=== PATIENT | male | born 1965 | race Caucasian/White ===

== ENCOUNTER 2022-06-24 18:49 | Inpatient (IN) ==
[2022-06-24] MEDS ORDERED: cefTRIAXone 1,000 MG in 0.9 % Sodium Chloride 10 ML IVP ONE (19:11)
[2022-06-24] MEDS ORDERED: *HR* FentaNYL (PF) 100 MCG/2 ML VIAL IVP ONE (19:14)
[2022-06-24] MEDS ORDERED: Naloxone 0.4 MG/ML INJ IVP PRN (20:02)
[2022-06-24] MEDS ORDERED: Acetaminophen 325 MG TABLET PO PRN (20:02)
[2022-06-24] MEDS ORDERED: Ondansetron 4 MG/2 ML VIAL IVP PRN (20:02)
[2022-06-25] MEDS ORDERED: Iopamidol - 370 500 ML MLS IVP ONE (08:18)
[2022-06-25 08:49] LABS: Basophils # 0.1 K/mcL (0.0-0.2); Basophils % 0.7 %; Eosinophils # 0.4 K/mcL (0.0-0.6); Eosinophils % 3.7 %; Hematocrit 50.4 % (37.5-50.1); Hemoglobin 16.4 g/dL (12.9-16.9); Immature Granulocytes % 0.4 % (0-4); Lymphocytes # 2.1 K/mcL (0.6-4.6); Lymphocytes % 18.4 %; Mean Corpuscular HGB Conc 32.5 g/dL (31.6-35.5); Mean Corpuscular Hemoglobin 29.4 pg (28.0-33.3); Mean Corpuscular Volume 90.3 fL (83.0-100.0); Monocytes # 0.9 K/mcL (0.0-1.3); Monocytes % 7.7 %; Neutrophils # 7.8 K/mcL (1.6-8.9); Platelet Count 280 K/mcL (140-400); Red Blood Count 5.58 M/mcL (4.19-5.50); Segmented Neutrophils % 69.1 %; White Blood Count 11.3 K/mcL (4.3-11.1)
[2022-06-25] MEDS ORDERED: cefTRIAXone 1,000 MG in 0.9 % Sodium Chloride 10 ML IVPB SCH (09:00)
[2022-06-25 09:01] LABS: INR 1.2; Prothrombin Time 13.6 Seconds (9.4-12.1)
[2022-06-25 09:12] LABS: BUN/Creatinine Ratio 16 (6-26); Blood Urea Nitrogen 15 mg/dL (6-20); Calcium 9.3 mg/dL (8.6-10.3); Carbon Dioxide 27 mEq/L (23-29); Chloride 104 mEq/L (98-107); Glucose 121 mg/dL (70-105); Magnesium 1.7 mg/dL (1.6-2.6); Osmolality,Calculated 288 (280-300); Phosphorous 3.7 mg/dL (2.7-4.5); Potassium 4.1 mEq/L (3.5-5.1); Sodium 138 mEq/L (136-145)
[2022-06-25 09:24] LABS: Thyroid Stimulating Hormone 2.454 mcIU/mL (0.340-5.600)
[2022-06-25] MEDS ORDERED: *HR* Propofol 200 MG/20 ML VIAL IVP ONE (15:05)
[2022-06-25] MEDS ORDERED: Lidocaine -MPF 2% 2 ML VIAL ONE (15:06)
[2022-06-25] MEDS ORDERED: *HR* Rocuronium Bromide 50 MG/5 ML VIAL ONE (15:06)
[2022-06-25] MEDS ORDERED: *HR* Succinylcholine 200 MG/10 ML VIAL IVP ONE (15:06)
[2022-06-25] MEDS ORDERED: Albuterol 2.5 MG/3 ML NEBULIZER IH PRN (15:10)
[2022-06-25] MEDS ORDERED: Ondansetron 4 MG/2 ML VIAL IVP PRN (15:10)
[2022-06-25] MEDS ORDERED: *HR* FentaNYL (PF) 100 MCG/2 ML VIAL IVP PRN (15:10)
[2022-06-25 17:08] VITALS: BP 115/76; PULSE 79; TEMP 97.4; O2SAT 96
== END 2022-06-25 18:45 | disposition home or self-care (01) | DRG 254 ==
LOC: EMEROOARM 18:49 → 3ANU 18:49 → SUATTDRO 20:02 → 3ANU 21:00
PROVIDERS: ADMIT Internal Medicine; ATTEND Family Medicine
PROC: ENDOEUS (2022-06-25 15:30)

== ENCOUNTER 2022-06-30 12:37 | Observation (INO) ==
[2022-06-30] MEDS ORDERED: Iopamidol - 370 500 ML MLS IVP ONE (13:47)
[2022-06-30] MEDS ORDERED: Morphine Sulfate 2 MG/ML SYRINGE IVP ONE (13:54)
[2022-06-30 14:40] LABS: Basophils # 0.1 K/mcL (0.0-0.2); Basophils % 0.9 %; Eosinophils # 0.4 K/mcL (0.0-0.6); Eosinophils % 2.9 %; Hematocrit 52.3 % (37.5-50.1); Hemoglobin 16.9 g/dL (12.9-16.9); Immature Granulocytes % 0.4 % (0-4); Lymphocytes # 1.7 K/mcL (0.6-4.6); Lymphocytes % 11.4 %; Mean Corpuscular HGB Conc 32.3 g/dL (31.6-35.5); Mean Corpuscular Hemoglobin 29.3 pg (28.0-33.3); Mean Corpuscular Volume 90.8 fL (83.0-100.0); Mean Platelet Volume 11.1 fL (9.4-12.4); Monocytes # 1.3 K/mcL (0.0-1.3); Monocytes % 8.7 %; Neutrophils # 11.2 K/mcL (1.6-8.9); Platelet Count 328 K/mcL (140-400); Red Blood Count 5.76 M/mcL (4.19-5.50); Red Cell Distribution Width 13.9 % (11.5-14.5); Segmented Neutrophils % 75.7 %; White Blood Count 14.8 K/mcL (4.3-11.1)
[2022-06-30 14:52] LABS: Alanine Aminotransferase 20 Units/L (7-52); Albumin 3.9 g/dL (3.5-5.7); Albumin/Globulin Ratio 1.3 (1.1-2.2); Alkaline Phosphatase 59 Units/L (34-104); Aspartate Amino Transferase 15 Units/L (13-39); BUN/Creatinine Ratio 13 (6-26); Bilirubin,Direct 0.1 mg/dL (0.0-0.2); Bilirubin,Indirect 0.3 mg/dL (0.0-1.0); Bilirubin,Total 0.4 mg/dL (0.3-1.0); Blood Urea Nitrogen 17 mg/dL (6-20); Calcium 9.4 mg/dL (8.6-10.3); Carbon Dioxide 29 mEq/L (23-29); Chloride 103 mEq/L (98-107); Globulin 3.1 g/dL (2.4-3.5); Glucose 101 mg/dL (70-105); Lipase 28 Units/L (11-82); Osmolality,Calculated 284 (280-300); Potassium 4.1 mEq/L (3.5-5.1); Sodium 136 mEq/L (136-145); Troponin I < 0.03 ng/mL (< 0.04)
[2022-06-30] MEDS ORDERED: 0.9 % Sodium Chloride 1,000 ML IVC ONE (16:31)
[2022-06-30] MEDS ORDERED: CefTRIAXone 1,000 MG VIAL IM ONE (16:32)
[2022-06-30] MEDS ORDERED: Ketorolac 30 MG/ML VIAL IVP ONE (16:33)
[2022-06-30] MEDS ORDERED: cefTRIAXone 1,000 MG in Water for inj. (sterile) 10 ML IVP ONE (16:36)
[2022-06-30 17:12] LABS: Bilirubin,Urine Negative (Negative); Blood,Urine Moderate (Negative); Budding Yeast,Urine Many per hpf (None Seen); Clarity,Urine Ex.Turbid (Clear); Color,Urine Yellow (Yellow); Glucose,Urine (UA) Normal (Normal); Ketones,Urine Negative (Negative); Leukocyte Esterase,Urine Moderate (Negative); Nitrite,Urine Negative (Negative); PH,Urine 7.5 pH Units (5.0-8.0); Protein,Urine Negative (Neg-Trace); RBC,Urine TNTC per hpf (0-3); Specific Gravity,Urine > 1.030 (1.010-1.025); Urobilinogen,Urine Normal (Normal); WBC,Urine 30-50 per hpf (0-3)
[2022-06-30] MEDS ORDERED: Naloxone 0.4 MG/ML INJ IVP PRN (19:25)
[2022-06-30] MEDS ORDERED: Ondansetron 4 MG/2 ML VIAL IVP PRN (19:25)
[2022-06-30] MEDS ORDERED: Ketorolac 30 MG/ML VIAL IVP PRN (19:25)
[2022-06-30] MEDS ORDERED: Acetaminophen 325 MG TABLET PO PRN (19:25)
[2022-06-30] MEDS ORDERED: 0.9 % Sodium Chloride 1,000 ML IVC SCH (19:30)
[2022-07-01 01:55] LABS: Hemoglobin 15.8 g/dL (12.9-16.9); Mean Corpuscular HGB Conc 32.9 g/dL (31.6-35.5); Mean Corpuscular Hemoglobin 29.2 pg (28.0-33.3); Mean Corpuscular Volume 88.6 fL (83.0-100.0); Mean Platelet Volume 10.9 fL (9.4-12.4); Platelet Count 298 K/mcL (140-400); Red Blood Count 5.42 M/mcL (4.19-5.50); White Blood Count 21.2 K/mcL (4.3-11.1)
[2022-07-01 02:14] LABS: Calcium 8.9 mg/dL (8.6-10.3); Potassium 4.1 mEq/L (3.5-5.1)
[2022-07-01] MEDS ORDERED: Ondansetron 4 MG/2 ML VIAL ONE (07:22)
[2022-07-01] MEDS ORDERED: *HR* Propofol 200 MG/20 ML VIAL IVP ONE (07:22)
[2022-07-01] MEDS ORDERED: Lidocaine -MPF 2% 2 ML VIAL ONE (07:22)
[2022-07-01] MEDS ORDERED: *HR* Succinylcholine 200 MG/10 ML VIAL IVP ONE (07:22)
[2022-07-01] MEDS ORDERED: *HR* FentaNYL (PF) 100 MCG/2 ML VIAL ONE (07:22)
[2022-07-01] MEDS ORDERED: Famotidine 20 MG/2 ML VIAL ONE (07:39)
[2022-07-01] MEDS ORDERED: Acetaminophen IV 1,000 MG/100 ML BAG IVPB ONE ×2 (07:39→07:40)
[2022-07-01] MEDS ORDERED: Famotidine 20 MG/2 ML VIAL IVP ONE (07:40)
[2022-07-01] MEDS ORDERED: Iopamidol - 300 50 ML VIAL ONE (08:01)
[2022-07-01] MEDS ORDERED: *HR* Rocuronium Bromide 50 MG/5 ML VIAL ONE (08:32)
[2022-07-01] MEDS ORDERED: Ringers Solution, Lactated 1,000 ML ONE (09:12)
[2022-07-01] MEDS ORDERED: Naloxone 0.4 MG/ML INJ IVP PRN (09:32)
[2022-07-01] MEDS ORDERED: Ondansetron 4 MG/2 ML VIAL IVP PRN (09:32)
[2022-07-01] MEDS ORDERED: Acetaminophen 325 MG TABLET PO PRN (09:32)
[2022-07-01] MEDS ORDERED: Ketorolac 30 MG/ML VIAL IVP PRN (09:32)
[2022-07-01] MEDS ORDERED: *HR* Belladonna Alkaloids/Opium 30 MG RECTAL SUPPOSITORY RC PRN (09:32)
[2022-07-01] MEDS: 0.9 % Sodium Chloride 1,000 ML IVC SCH (13:29)
[2022-07-01] MEDS ORDERED: cefTRIAXone 1,000 MG in 0.9 % Sodium Chloride 10 ML IVP SCH (17:00)
[2022-07-02] MEDS: 0.9 % Sodium Chloride 1,000 ML IVC SCH (05:42)
[2022-07-02 06:56] VITALS: BP 117/71; PULSE 71; TEMP 97.8; O2SAT 96
[2022-07-02 18:39] LABS: A.calcoaceticus-baumannii cplx Not Detected (Not Detect); Enterococcus faecalis by PCR Not Detected (Not Detect); Enterococcus faecium by PCR Not Detected (Not Detect); Staph epidermidis by PCR Not Detected (Not Detect); Staph lugdunensis by PCR Not Detected (Not Detect); Staphylococcus aureus by PCR Not Detected (Not Detect); Staphylococcus by PCR Not Detected (Not Detect); Streptococcus agalactiae(B)PCR Not Detected (Not Detect); Streptococcus by PCR Not Detected (Not Detect); Streptococcus pneumoniae PCR Not Detected (Not Detect); Streptococcus pyogenes (A) PCR Not Detected (Not Detect)
[2022-07-02 18:40] LABS: Bacteroides fragilis by PCR Not Detected (Not Detect); Candida albicans by PCR Not Detected (Not Detect); Candida auris by PCR Not Detected (Not Detect); Candida glabrata by PCR Not Detected (Not Detect); Candida krusei by PCR Not Detected (Not Detect); Candida parapsilosis by PCR Not Detected (Not Detect); Candida tropicalis by PCR Not Detected (Not Detect); Crypto. neoformans/gattii PCR Not Detected (Not Detect); Enterobacter cloacae Cmplx PCR Not Detected (Not Detect); Enterobacterales by PCR Not Detected (Not Detect); Escherichia coli by PCR Not Detected (Not Detect); Klebs. pneumoniae group by PCR Not Detected (Not Detect); Klebsiella aerogenes by PCR Not Detected (Not Detect); Klebsiella oxytoca by PCR Not Detected (Not Detect); Proteus by PCR Not Detected (Not Detect); Pseudomonas aeruginosa by PCR Not Detected (Not Detect); Salmonella species by PCR Not Detected (Not Detect); Serratia marcescens by PCR Not Detected (Not Detect); Stenotrophomonas maltophilia Not Detected (Not Detect)
== END 2022-07-02 08:15 | disposition left against medical advice (07) ==
LOC: 3ANU 12:37 → EMEROOARM 12:37 → SUATTDRO 18:39 → 3ANU 19:55
PROVIDERS: ADMIT Internal Medicine; ATTEND Family Medicine

== ENCOUNTER 2022-07-03 15:29 | Inpatient (IN) ==
[2022-07-03] MEDS ORDERED: cefTRIAXone 1,000 MG in 0.9 % Sodium Chloride 10 ML IVP ONE (18:26)
[2022-07-03 18:43] LABS: Basophils # 0.1 K/mcL (0.0-0.2); Basophils % 0.8 %; Eosinophils # 0.4 K/mcL (0.0-0.6); Eosinophils % 3.2 %; Hematocrit 48.7 % (37.5-50.1); Hemoglobin 15.8 g/dL (12.9-16.9); Immature Granulocytes % 0.3 % (0-4); Lymphocytes # 2.3 K/mcL (0.6-4.6); Lymphocytes % 19.7 %; Mean Corpuscular HGB Conc 32.4 g/dL (31.6-35.5); Mean Corpuscular Hemoglobin 29.4 pg (28.0-33.3); Mean Corpuscular Volume 90.5 fL (83.0-100.0); Monocytes # 1.1 K/mcL (0.0-1.3); Monocytes % 9.5 %; Neutrophils # 7.9 K/mcL (1.6-8.9); Platelet Count 323 K/mcL (140-400); Red Blood Count 5.38 M/mcL (4.19-5.50); Red Cell Distribution Width 14.3 % (11.5-14.5); Segmented Neutrophils % 66.5 %; White Blood Count 11.9 K/mcL (4.3-11.1)
[2022-07-03] MEDS ORDERED: Vancomycin 2,000 MG/520 ML IV.SOLN IVPB ONE (19:00)
[2022-07-03 19:09] LABS: Calcium 9.2 mg/dL (8.6-10.3); Potassium 3.9 mEq/L (3.5-5.1)
[2022-07-03] MEDS ORDERED: Melatonin 3 MG TABLET PO PRN (19:21)
[2022-07-03] MEDS ORDERED: Ondansetron ODT 4 MG TAB.RAPDIS SL PRN (19:21)
[2022-07-03] MEDS ORDERED: Acetaminophen 325 MG TABLET PO PRN (19:21)
[2022-07-03] MEDS ORDERED: Naloxone 0.4 MG/ML INJ IVP PRN (19:21)
[2022-07-04] MEDS ORDERED: *HR* OxyCODONE Immed Rel 5 MG TABLET PO PRN (07:45)
[2022-07-04] MEDS ORDERED: Vancomycin 2,000 MG/520 ML IV.SOLN IVPB SCH (08:00)
[2022-07-04 11:18] VITALS: BP 136/91; PULSE 74; TEMP 97.6; O2SAT 96
[2022-07-04] MEDS ORDERED: *HR* Heparin 5,000 UNIT/ML VIAL SQ SCH (14:00)
[2022-07-04] MEDS ORDERED: cefTRIAXone 1,000 MG in 0.9 % Sodium Chloride 10 ML IVP SCH (19:00)
[2022-07-04] MEDS ORDERED: Vancomycin 1,500 MG/265 ML IV.SOLN IVPB SCH (20:00)
== END 2022-07-04 15:07 | disposition home or self-care (01) | DRG 463 ==
LOC: EMEROOARM 15:29 → 3ANU 15:29 → SUATTDRO 18:34 → 3ANU 20:02
PROVIDERS: ADMIT Hospitalist; ATTEND Family Medicine